=== PATIENT | male | born 2000 | race Caucasian/White ===

== ENCOUNTER 2020-11-07 17:20 | Emergency (ER) | payer MEDICAID ==
[~2020-11-07] VITALS: Ht 188 cm; Wt 114.0 kg
[2020-11-07] MEDS ORDERED: DIPHENHYDRAMINE 25MG CAPSULE PO ONE (19:30)
[2020-11-07] MEDS ORDERED: DEXAMETHASONE 10 MG/ML VIAL PO ONE (22:45)
[2020-11-07 23:30] VITALS: BP 129/72
== END 2020-11-08 | disposition home or self-care (01) ==
LOC: ER 17:20
DX: Z03.818 Encounter for observation for suspected exposure to other biological agents ruled out (principal); R21 Rash and other nonspecific skin eruption; J45.909 Unspecified asthma, uncomplicated
CPT/HCPCS: 71045; 99283; C9803; Q0163; U0003